=== PATIENT | male | born 1990 | race Caucasian/White ===

== ENCOUNTER 2021-08-03 18:47 | Emergency (ER) | payer OTHER, SELFPAY ==
[2021-08-03] MEDS ORDERED: Acetaminophen 500 MG TAB ONE (19:22)
== END 2021-08-03 20:02 ==
LOC: MADERS 18:47
DX: S06.0X0A Concussion without loss of consciousness, initial encounter (principal); S63.501A Unspecified sprain of right wrist, initial encounter; S20.211A Contusion of right front wall of thorax, initial encounter; F17.210 Nicotine dependence, cigarettes, uncomplicated; Y04.2XXA Assault by strike against or bumped into by another person, initial encounter
CPT/HCPCS: 29125; 70450

== ENCOUNTER 2021-08-30 20:52 | Emergency (ER) | payer OTHER, SELFPAY ==
[2021-08-30] MEDS ORDERED: Ketorolac Tromethamine 30 MG/ML VIAL ONE (21:18)
[2021-08-30] MEDS ORDERED: Ondansetron PF 4 MG/2 ML Vial ONE (21:18)
[2021-08-30] MEDS ORDERED: Sodium Chloride 0.9% 1,000 ML ONE (21:18)
[2021-08-30 21:46] LABS: #Basophils 0.1 thou/uL (0.0-0.2); #Lymphocytes 0.7 thou/uL (1.20-3.40); #Monocytes 0.7 thou/uL (0.11-0.59); #Neutrophils 3.7 thou/uL (1.40-6.50); %Basophils 1.9 % (0.0-1.0); %Eosinophils 0.1 % (0.0-10.0); %Lymphocytes 13.6 % (21.0-51.0); %Neutrophils 71.4 % (42.0-75.0); Mean Corpuscular HGB CONC 33.8 g/dL (32.0-36.0); Mean Corpuscular Volume 85.9 fL (78.0-98.0); Mean Platelet Volume 8.7 fL (7.4-10.4); Platelet Count 235 thou/uL (130-400); Red Blood Cell (RBC) Count 4.48 mill/uL (4.70-6.10); White Blood Cell (WBC) Count 5.1 thou/uL (4.8-10.8)
[2021-08-30 21:59] LABS: Bilirubin Negative (Negative); Blood, Urine Negative (Negative); Clarity Clear (Clear); Glucose, Urine (Dipstick) Negative (Negative); Ketone, Urine 40 mg/dL (Negative); Leukocyte Negative (Negative); Nitrite Negative (Negative); Protein, Urine (Dipstick) Negative (Neg-Trace); Specific Gravity, Urine 1.015 (1.005-1.030); Urobilinogen 0.2 mg/dL (Less than 2); pH, Urine 8.5 (5.0-9.0)
[2021-08-30 22:05] LABS: ALT (SGPT) 25 U/L (8-55); AST (SGOT) 23 U/L (5-34); Albumin 4.2 g/dL (3.5-5.0); Alkaline Phosphatase 61 U/L (40-110); Anion Gap 14 mmol/L (10-20); BUN (Urea Nitrogen) 10 mg/dL (8.9-20.6); Bilirubin, Total 0.2 mg/dL (0.2-1.2); CK (CPK) 87 U/L (30-200); Calc. Creatinine Clearance 0 mL/min (70-130); Calcium 8.4 mg/dL (7.8-10.44); Carbon Dioxide 19 mmol/L (22-29); Chloride 109 mmol/L (98-107); Estimated GFR 119; Globulin 2.6 g/dL (2.4-3.5); Glucose 98 mg/dL (70-105); Lipase 16 U/L (8-78); Potassium 3.8 mmol/L (3.5-5.1); Protein, Total 6.8 g/dL (6.0-8.3); Sodium 138 mmol/L (136-145)
[2021-08-30 22:21] LABS: SARS-CoV-2 NAA Rapid Test DETECTED (NotDetected)
== END 2021-08-30 23:00 ==
LOC: EEVIPCON 20:52 → MADERS 20:52
DX: U07.1 COVID-19 (principal); R51.9 Headache, unspecified; F17.210 Nicotine dependence, cigarettes, uncomplicated
CPT/HCPCS: 71045; 80053; 81003; 82550; 83605; 83690; 84484; 85025; 87040; 87086; 96361; 96374; 96375; J1885; J2405; J7050